=== PATIENT | female | born 1955 ===

== ENCOUNTER 2023-10-15 08:50 | Observation (INO) | payer MEDICARE ==
[2023-10-15 10:27] LABS: BASOPHILS PERCENT AUTO 0.2 % (0.0-1.0); EOSINOPHILS PERCENT AUTO 1.9 % (1.0-3.0); HEMATOCRIT 48.3 % (37.0-47.0); HEMOGLOBIN 14.8 g/dL (12.0-16.0); LYMPHOCYTES PERCENT AUTO 27.4 % (20.5-50.1); MEAN CORPUSCULAR HEMOGLOBIN 28.8 pg (27.0-34.0); MEAN CORPUSCULAR HGB CONC 30.6 g/dL (33.0-35.0); MEAN CORPUSCULAR VOLUME 94.2 fL (80-100); MONOCYTES PERCENT AUTO 7.1 % (2-8); NEUTROPHILS PERCENT AUTO 63.4 % (42.2-75.2); PLATELET COUNT,PLT 382 10^3/uL (150-450); RED BLOOD CELL COUNT 5.13 10^6/uL (4.2-5.4); WHITE BLOOD CELL COUNT,WBC 10.5 10^3/uL (5.0-10.0)
[2023-10-15] MEDS: Ketorolac 30 MG/ML SDV IVPUSH ONE (10:29)
[2023-10-15] MEDS: Sodium Chloride 0.9% 10 ML Syringe FLUSH PRN (10:31)
[2023-10-15 10:48] LABS: B-TYPE NATRIURETIC PEPTIDE,BNP 153 pg/ml (0-100)
[2023-10-15 10:51] LABS: ANION GAP 12.6 mEq/L (7-13); BILIRUBIN TOTAL 0.4 mg/dL (0.2-1.0); BUN/CREATININE RATIO 11.8 (No establ ref range); CALCIUM 8.3 mg/dL (8.5-10.1); CREATININE 1.02 mg/dL (0.55-1.02); EST CRCL DRUG DOSING (CG) 52.51 mL/min; PROTEIN TOTAL,TP 8.1 g/dL (6.4-8.2)
[2023-10-15 10:52] LABS: A/G RATIO 0.59
[2023-10-15 10:54] LABS: POTASSIUM,K 5.6 mmol/L (3.5-5.1)
[2023-10-15 11:13] LABS: CORONAVIRUS COVID-19 NAA NEGATIVE (NEGATIVE); INFLUENZA A NAA NEGATIVE (NEGATIVE); INFLUENZA B NAA NEGATIVE (NEGATIVE); RESPIRATORY SYNCYTIAL VIR NAA NEGATIVE (NEGATIVE)
[2023-10-15] MEDS: Furosemide 40 MG/4 ML VIAL IVPUSH ONE (11:26)
[2023-10-15] MEDS ORDERED: Albuterol 6.7 GM Inhaler INH PRN (11:52)
[2023-10-15] MEDS ORDERED: Docusate Sodium 100 MG Cap PO PRN (11:53)
[2023-10-15] MEDS ORDERED: Bisacodyl 5 MG Tab PO PRN (11:53)
[2023-10-15] MEDS ORDERED: Ondansetron 4 MG/2 ML SDV IVPUSH PRN (11:53)
[2023-10-15] MEDS ORDERED: Melatonin 3 MG Tab PO PRN (11:55)
[2023-10-15] MEDS ORDERED: Furosemide 20 MG Tab PO SCH (21:00)
[2023-10-15] MEDS: Primidone 50 MG Tab PO SCH (21:12)
[2023-10-15] MEDS: Acetaminophen/HYDROcodone 325-5 MG Tab PO SCH (21:12)
[2023-10-16] MEDS: Acetaminophen 325 MG Tab PO PRN (05:47)
[2023-10-16 07:03] LABS: ANION GAP 10.5 mEq/L (7-13); CALCIUM 7.9 mg/dL (8.5-10.1); CREATININE 0.97 mg/dL (0.55-1.02); EST CRCL DRUG DOSING (CG) 55.22 mL/min; POTASSIUM,K 4.5 mmol/L (3.5-5.1)
[2023-10-16] MEDS ORDERED: [UNRECOGNIZED DRUG - OTHER] PO SCH (09:00)
[2023-10-16] MEDS ORDERED: DHA PO SCH (09:00)
[2023-10-16] MEDS ORDERED: EPA PO SCH (09:00)
[2023-10-16] MEDS ORDERED: FISH OIL PO SCH (09:00)
[2023-10-16] MEDS ORDERED: OMEGA PO SCH (09:00)
[2023-10-16] MEDS: Metoprolol Succinate 50 MG Tab.ER PO SCH (09:51)
[2023-10-16] MEDS: Furosemide 20 MG Tab PO SCH (09:53)
[2023-10-16] MEDS: atorvaSTATin 20 MG Tab PO SCH (09:53)
[2023-10-16] MEDS: Primidone 250 MG Tab PO SCH (09:53)
[2023-10-16] MEDS: Loratadine 10 MG Tab PO SCH (09:54)
[2023-10-16] MEDS: Enoxaparin 40 MG/0.4 ML Syringe SUBCUT SCH (09:54)
[2023-10-16 12:19] VITALS: BP 110/61; PULSE 70
== END 2023-10-16 16:15 | disposition home or self-care (01) ==
LOC: DL.ED 08:50 → INTOOBSV 11:17 → DL.MS 11:17
PROVIDERS: ADMIT Internal Medicine; ATTEND Internal Medicine
DX: J96.11 Chronic respiratory failure with hypoxia (principal); M53.3 Sacrococcygeal disorders, not elsewhere classified; G89.29 Other chronic pain; E78.00 Pure hypercholesterolemia, unspecified; I10 Essential (primary) hypertension; Z86.16 Personal history of COVID-19; Z79.899 Other long term (current) drug therapy; W01.198A Fall on same level from slipping, tripping and stumbling with subsequent striking against other object, initial encounter
CPT/HCPCS: 0241U; 36415; 71045; 72170; 72220; 80048; 80053; 83605; 83880; 84484; 85025; 93005; 93010; 96372; 96374; 96375; 97165; 99222; 99239; 99284; 99285; A9270; G0378; J1650; J1885; J1940; J3490

== ENCOUNTER 2024-08-05 07:28 | Day surgery (SDC) | payer MEDICARE ==
[2024-08-05] MEDS ORDERED: Acetaminophen/Codeine 300-30 MG Tab PO PRN (07:30)
[2024-08-05] MEDS ORDERED: Ondansetron 4 MG/2 ML SDV IVPUSH PRN (07:30)
[2024-08-05] MEDS: Sodium Chloride 0.9% 10 ML Syringe FLUSH PRN (08:24)
[2024-08-05] MEDS: Proparacaine 0.5% Ophth Soln 15 ML Bottle EYELF ONE ×3 (08:26→09:26)
[2024-08-05] MEDS: Lidocaine 1% 30 ML SDV ONE ×3 (08:26→09:38)
[2024-08-05] MEDS: Povidone-Iodine 5% Sterile Ophth Soln 30 ML Bottle EYELF ONE ×3 (08:26→09:27)
[2024-08-05] MEDS: VANCOmycin 500 MG SDV EYELF ONE ×3 (08:27→09:38)
[2024-08-05] MEDS: Apraclonidine 0.5% Ophth Soln 5 ML Bot EYELF ONE ×2 (08:27→09:42)
[2024-08-05] MEDS: Moxifloxacin 0.5% Ophth Soln 3 ML Bottle EYELF ONE (08:27)
[2024-08-05] MEDS: Dexamethasone/Neomycin/Polymyxin B Ophth Oint 3.5 GM Tube EYELF ONE ×2 (08:28→09:43)
[2024-08-05] MEDS: Tropicamide 1% Ophth Soln 15 ML Bottle EYELF ONE (08:28)
[2024-08-05] MEDS: Phenylephrine 10% Ophth Soln 5 ML Bot EYELF ONE (08:28)
[2024-08-05] MEDS: Diclofenac Sodium 0.1% Ophth Soln 5 ML Bottle EYELF ONE ×2 (08:28→09:42)
[2024-08-05] MEDS: Timolol Maleate 0.5% Ophth Soln 5 ML Bottle EYELF ONE (08:29)
[2024-08-05] MEDS: Cataract Ophth Solution EYELF ONE (08:29)
[2024-08-05] MEDS: Acetaminophen 325 MG Tab PO PRN (10:05)
[2024-08-05 10:17] VITALS: BP 159/67; PULSE 72
== END 2024-08-05 10:20 | disposition home or self-care (01) ==
LOC: DL.SDS 07:28
PROVIDERS: ATTEND Ophthalmology
DX: H25.812 Combined forms of age-related cataract, left eye (principal); I10 Essential (primary) hypertension; E78.49 Other hyperlipidemia; Z79.899 Other long term (current) drug therapy; Z91.040 Latex allergy status
CPT/HCPCS: 66984; A9270; J3370; V2632; J3490

== ENCOUNTER 2024-08-12 08:45 | Day surgery (SDC) | payer MEDICARE ==
[2024-08-12] MEDS ORDERED: Acetaminophen 325 MG Tab PO PRN (09:00)
[2024-08-12] MEDS ORDERED: Acetaminophen/Codeine 300-30 MG Tab PO PRN (09:00)
[2024-08-12] MEDS ORDERED: Ondansetron 4 MG/2 ML SDV IVPUSH PRN (09:00)
[2024-08-12] MEDS: Sodium Chloride 0.9% 10 ML Syringe FLUSH PRN (09:09)
[2024-08-12] MEDS: Moxifloxacin 0.5% Ophth Soln 3 ML Bottle EYERT ONE (09:17)
[2024-08-12] MEDS: Proparacaine 0.5% Ophth Soln 15 ML Bottle EYERT ONE ×2 (09:17→10:03)
[2024-08-12] MEDS: Povidone-Iodine 5% Sterile Ophth Soln 30 ML Bottle EYERT ONE ×2 (09:18→10:03)
[2024-08-12] MEDS: Tropicamide 1% Ophth Soln 15 ML Bottle EYERT ONE (09:19)
[2024-08-12] MEDS: Timolol Maleate 0.5% Ophth Soln 5 ML Bottle EYERT ONE (09:20)
[2024-08-12] MEDS: Phenylephrine 10% Ophth Soln 5 ML Bot EYERT ONE (09:20)
[2024-08-12] MEDS: Cataract Ophth Solution EYERT ONE (09:21)
[2024-08-12] MEDS: Lidocaine 1% 30 ML SDV ONE (10:12)
[2024-08-12] MEDS: VANCOmycin 500 MG SDV EYERT ONE (10:12)
[2024-08-12] MEDS: Apraclonidine 0.5% Ophth Soln 5 ML Bot EYERT ONE (10:14)
[2024-08-12] MEDS: Diclofenac Sodium 0.1% Ophth Soln 5 ML Bottle EYERT ONE (10:15)
[2024-08-12] MEDS: Dexamethasone/Neomycin/Polymyxin B Ophth Oint 3.5 GM Tube EYERT ONE (10:15)
[2024-08-12 11:30] VITALS: BP 155/73; PULSE 66
== END 2024-08-12 10:53 | disposition home or self-care (01) ==
LOC: DL.SDS 08:45
PROVIDERS: ATTEND Ophthalmology
DX: H25.811 Combined forms of age-related cataract, right eye (principal); I10 Essential (primary) hypertension; Z79.899 Other long term (current) drug therapy; Z91.040 Latex allergy status; Z88.5 Allergy status to narcotic agent; Z88.8 Allergy status to other drugs, medicaments and biological substances; Z87.891 Personal history of nicotine dependence
CPT/HCPCS: 66982; A9270; J3370; V2632; J3490

== ENCOUNTER 2024-12-15 06:22 | Day surgery (SDC) | payer MEDICARE ==
[~2024-12-15 06:22] MED LIST: Midazolam 1 MG/ML 2 ML SDV IV ONE; Midazolam 1 MG/ML 2 ML SDV ONE; fentaNYL 100 MCG/2 ML SDV IV ONE; fentaNYL 100 MCG/2 ML SDV ONE
[2024-12-15] MEDS: Dextrose 5%-0.45% NaCl 1,000 ML IV SCH (06:45)
[2024-12-15] MEDS: fentaNYL 100 MCG/2 ML SDV IV ONE ×3 (07:41→07:47)
[2024-12-15] MEDS: Midazolam 1 MG/ML 2 ML SDV IV ONE ×5 (07:43→07:51)
[2024-12-15 09:38] VITALS: BP 122/48; PULSE 72
== END 2024-12-15 09:32 | disposition home or self-care (01) ==
LOC: DL.ENDO 06:22
PROVIDERS: ATTEND Internal Medicine Gastroenterology
DX: Z12.11 Encounter for screening for malignant neoplasm of colon (principal); R19.5 Other fecal abnormalities; K57.30 Diverticulosis of large intestine without perforation or abscess without bleeding; K64.8 Other hemorrhoids; K64.4 Residual hemorrhoidal skin tags
CPT/HCPCS: 45378; J2250; J3010